=== PATIENT | female | born 1980 | race African-American/Black ===

== ENCOUNTER → 2022-07-08 | Outpatient (CLI) | payer BC ==
[~2022-07-08] MED LIST: IOPAMIDOL 300MG/ML 100 ML INFUS..BTL IV ONE
== END ==
LOC: DX 10:59
PROVIDERS: ATTEND Obstetrics & Gynecology Reproductive Endocrinology
DX: N97.1 Female infertility of tubal origin (principal)
CPT/HCPCS: 74740; 81025; Q9967